=== PATIENT | male | born 1955 | race Caucasian/White ===

== ENCOUNTER 2020-09-19 11:50 | Day surgery (SDC) | payer MEDICARE, BC ==
[~2020-09-19] VITALS: Ht 175.3 cm; Wt 63.5 kg
[~2020-09-19 11:50] MED LIST: AMOX/K CLAV875 M1 PO; LEXAPRO10 MG PO; MARIJUANA; PENTOXIFYLLI400 M1 PO
[2020-09-19 15:28] VITALS: BP 128/72
--- NOTE | 2020-09-24 09:43 | NUR ---
PER PHYSICIAN, VERBAL COLONOSCOPY FINDINGS AND RECOMMENDATIONS GIVEN TO PATIENT. RECOMMENDED: COLONOSCOPY IN FIVE YEARS OR SOONER IF NEEDED AND HIGH FIBER DIET. PATIENT VERBALIZED UNDERSTANDING OF INFORMATION GIVEN. REPORT FORWARDED TO PRIMARY PHYSICIAN FOR CONTINUITY OF CARE.
== END 2020-09-19 15:44 | disposition home or self-care (01) ==
LOC: ENDO 11:50
PROVIDERS: ATTEND Surgery
PROC: 0DJD8ZZ Inspection of Lower Intestinal Tract, Via Natural or Artificial Opening Endoscopic (ICD-10-PCS; principal; 2020-09-19)
DX: Z12.11 Encounter for screening for malignant neoplasm of colon (principal); K57.30 Diverticulosis of large intestine without perforation or abscess without bleeding; B19.20 Unspecified viral hepatitis C without hepatic coma; Z20.828 Contact with and (suspected) exposure to other viral communicable diseases